=== PATIENT | female | born 1990 | race African-American/Black ===

== ENCOUNTER 2022-11-04 12:02 | Outpatient (CLI) | payer BC | END 2022-11-04 12:03 | disposition home or self-care (01) | LOC: SCSMRI 12:02 | PROVIDERS: ATTEND Psychiatry & Neurology Neurology | DX: R20.2 Paresthesia of skin (principal); M89.9 Disorder of bone, unspecified; R90.82 White matter disease, unspecified; M43.8X4 Other specified deforming dorsopathies, thoracic region | CPT/HCPCS: 70553; 72148; 72156; 72157 ==